=== PATIENT | male | born 1930 | race Caucasian/White ===

== ENCOUNTER 2017-06-13 14:17 | Emergency (ER) | payer MEDICARE, OTHER ==
--- NOTE | 2017-06-13 14:39 | Emergency Department Record ---
History of Present Illness - General Chief complaint: Flu Like Symptoms Stated complaint: FEVER,COUGH Time Seen by Provider: 06/13/17 14:21 Source: Patient, RN notes reviewed Mode of Arrival: Ambulatory - History of Present Illness Initial comments: fever and coughing and some sputum PMH Hypertension, ex smoker quite 1985. Patient has numbness in the left thumb and 2nd and 3rd digit on the volar pads no weakness in fingers. cough for 3-4 days and last night wake up at 4 am with a fever and he took tylenol and numbness in threefingers because of that brought to the ED. Patient denies chest pain and further question after his EKG he said maybe some heaviness in the chest not really Onset/Timin -: Days(s) Location: Generalized Consistency: Other Improves with: None Worsens with: None Context: Other Associated Symptoms: Fever/chills - Related Data Allergies Allergy/AdvReac Type Severity Reaction Status Date / Time No Known Allergies Allergy Unverified 01/29/17 15:20 Travel Screening - Travel/Exposure Within Last 30 Days Have you traveled within the last 30 days?: No Review of Systems Reviewed: No additional complaints except as noted below Constitutional: Reports: As per HPI, Fever. Denies: Chills, Malaise, Night sweats, Weakness, Weight change Eyes: Reports: As per HPI. Denies: Eye discharge, Eye pain, Photophobia, Vision change ENT: Reports: As per HPI, Congestion. Denies: Dental pain, Ear pain, Epistaxis , Hearing loss, Throat pain Respiratory: Reports: As per HPI, Cough, Wheezes. Denies: Dyspnea, Hemoptysis, Stridor Cardiovascular: Reports: As per HPI. Denies: Arrhythmia, Chest pain, Dyspnea on exertion, Edema, Murmurs, Orthopnea, Palpitations, Paroxysmal nocturnal dyspnea, Rheumatic Fever, Syncope Endocrine: Reports: As per HPI. Denies: Fatigue, Heat or cold intolerance, Polydipsia, Polyuria Gastrointestinal: Reports: As per HPI. Denies: Abdominal pain, Constipation, Diarrhea, Hematemesis, Hematochezia, Melena, Nausea, Vomiting Genitourinary: Reports: As per HPI. Denies: Dysuria, Frequency, Hematuria, Incontinence, Retention, Testicular pain, Testicular mass, Urgency Musculoskeletal: Reports: As per HPI. Denies: Arthralgia, Back pain, Gout, Joint swelling, Myalgia, Neck pain Skin: Reports: As per HPI. Denies: Bruising, Change in color, Change in hair/ nails, Lesions, Pruritus, Rash Neurological: Reports: As per HPI. Denies: Abnormal gait, Confusion, Headache, Numbness, Paresthesias, Seizure, Tingling, Tremors, Vertigo, Weakness Psychiatric: Reports: As per HPI. Denies: Anxiety, Auditory hallucinations, Depression, Homicidal thoughts, Suicidal thoughts, Visual hallucinations Hematological/Lymphatic: Reports: As per HPI. Denies: Anemia, Blood Clots, Easy bleeding, Easy bruising, Swollen glands Past Medical History - SOCIAL HISTORY Smoking Status: Former smoker Alcohol Use: None Drug Use: None - RESPIRATORY Hx Respiratory Disorders: No - CARDIOVASCULAR Hx Cardio Disorders: Yes Hx Hypertension: Yes Comment:: high cholesterol - NEURO Hx Neuro Disorders: No Comment:: restless legs - GI Hx GI Disorders: No - Hx Genitourinary Disorders: Yes Hx Prostate Problems: Yes - ENDOCRINE Hx Endocrine Disorders: No - MUSCULOSKELETAL Hx Musculoskeletal Disorders: No - PSYCH Hx Psych Problems: No - HEMATOLOGY/ONCOLOGY Hx Hematology/Oncology Disorders: No Family Medical History Any Significant Family History?: No Physical Exam - General General Appearance: Alert, Oriented x3, Cooperative, Mild distress - Head Head exam: Normal inspection - Eye Eye exam: Normal appearance, PERRL Pupils: Normal accommodation - ENT ENT exam: Normal exam, Mucous membranes moist, Normal external ear exam, Normal orophraynx, TM's normal bilaterally Ear exam: Normal external inspection. negative: External canal tenderness Nasal Exam: Normal inspection. negative: Discharge, Sinus tenderness Mouth exam: Normal external inspection, Tongue normal Teeth exam: Normal inspection. negative: Dental caries Throat exam: Normal inspection. negative: Tonsillar erythema, Tonsillar exudate - Neck Neck exam: Normal inspection, Full ROM. negative: Tenderness - Respiratory Respiratory exam: Normal lung sounds bilaterally. negative: Respiratory distress - Cardiovascular Cardiovascular Exam: Regular rate, Normal rhythm, Normal heart sounds - GI/Abdominal GI/Abdominal exam: Soft, Normal bowel sounds. negative: Tenderness - Rectal Rectal exam: Deferred - exam: Deferred - Extremities Extremities exam: Normal inspection, Full ROM, Normal capillary refill. negative: Tenderness - Back Back exam: Reports: Normal inspection, Full ROM. Denies: Muscle spasm, Rash noted, Tenderness - Neurological Neurological exam: Alert, Normal gait, Oriented X3, Reflexes normal - Psychiatric Psychiatric exam: Normal affect, Normal mood - Skin Skin exam: Dry, Intact, Normal color, Warm Course Vital Signs 06/13/17 14:21 Temperature 98.6 F Pulse Rate 94 H Respiratory 18 Rate Blood Pressure 153/79 Pulse Ox 98 - Reevaluation(s) Reevaluation #1: discussed case with Dr. Fried and he said not stemi but needs a workup and wait for labs and he with Check with DR. Lau's previous EKGs and will call back. 06/13/17 16:17 Reevaluation #2: patient and refuse to go to [facility] and insisted in going to [facility] and they told me Dr Linder knows about there concerns of [facility]. 06/13/17 17:28 Reevaluation #3: Discussed case Dr. Toussaint and he accepted the admission and will transfer to [facility] 06/13/17 18:09 Medical Decision Making - Data Complexity MDM Data: Labs Ordered and/or Reviewed (flu b positive), X-Ray Ordered and/or Reviewed (chest xray cardiomegaly and right lower lobe infiltrate ), EKG Ordered and/or Reviewed (ST elevation of V1,V2,V3 V4, Discussed with Beatrice and he said LVH and not acute stemi) - Lab Data Result diagrams: 06/13/17 14:41 06/13/17 14:41 Disposition Clinical Impression: Influenza, Abnormal EKG, Troponin level elevated Pneumonia Qualifiers: Pneumonia type: due to unspecified organism Laterality: right Lung location: lower lobe of lung Qualified Code(s): J18.1 - Lobar pneumonia, unspecified organism Disposition: Acute Care Hospital Transfer Condition: (2) Stable Forms: Patient Portal Access Time of Disposition: 18:10 Quality - Quality Measures Quality Measures: N/A - Blood Pressure Screening Does Patient Have Any of the Following: No Blood Pressure Classification: Hypertensive Reading Systolic Measurement: 153 Diastolic Measurement: 79 Screening for High Blood Pressure: < Pre-Hypertensive BP, F/U Documented > [ G8950] Pre-Hypertensive Follow-up Interventions: Referral to alternative/primary care provider.
[2017-06-13] MEDS ORDERED: IPRATROPIUM/ALBUTEROL (0.5MG/3MG) NEB INH ONE (14:41)
[2017-06-13 14:45] LABS: INFLUENZA A NEGATIVE (NEGATIVE); INFLUENZA B POSITIVE (NEGATIVE)
[2017-06-13 15:05] LABS: HEMATOCRIT 45.2 % (42.0-52.0); MEAN CELL VOLUME 92.6 fl (81-97); MEAN CORPUSCULAR HEMOGLOBIN 30.7 pg (27-33); MEAN CORPUSCULAR HGB CONC 33.2 g/dl (32-36); MEAN PLATELET VOLUME 9.5 fl (7.4-10.4); PLATELET COUNT 198 K/uL (130-400); RED BLOOD COUNT 4.88 M/uL (4.40-5.70); RED CELL DISTRIBUTION WIDTH 13.8 % (11.5-14.5); WHITE BLOOD COUNT W/O DIFF 4.4 K/uL (4.2-12.2)
[2017-06-13] MEDS ORDERED: ALBUTEROL HFA 8 GM INHALER INH ONE (15:18)
[2017-06-13 15:24] LABS: BLOOD UREA NITROGEN 16 mg/dL (8-23); CREATININE 1.1 mg/dL (0.7-1.2); EST GLOMERULAR FILTRATION RATE > 60 mL/min; GLUCOSE,RANDOM 91 mg/dL (74-109)
[2017-06-13] MEDS ORDERED: ASPIRIN 81 MG CHEWABLE TABLET PO ONE (15:50)
[2017-06-13] MEDS ORDERED: OSTELTAMIVIR 75 MG CAP PO ONE (15:57)
[2017-06-13] MEDS ORDERED: HEPARIN SODIUM 1000 UNIT/1 ML 10ML VIAL IVP ONE (16:07)
[2017-06-13] MEDS ORDERED: HEPARIN SODIUM/D5W 25,000 UNITS/500 ML BAG IV SCH (16:15)
[2017-06-13 16:17] LABS: PARTIAL THROMBOPLASTIN TIME 30.9 SECONDS (24.5-39.1); PROTHROMBIN TIME (PATIENT) 11.1 SECONDS (9.5-12.1)
[2017-06-13 16:31] LABS: CKMB 4.3 ng/mL (<6.73)
[2017-06-13] MEDS ORDERED: CEFTRIAXONE SODIUM 1 GM in 0.9 % SODIUM CHLORIDE 100ML 100 ML IVPB ONE (17:35)
[2017-06-13] MEDS ORDERED: ACETAMINOPHEN 500 MG TABLET PO ONE (18:19)
--- NOTE | 2017-06-14 08:38 | RADIOLOGY REPORT ---
EXAM: CHEST, TWO VIEWS HISTORY: CHEST PAIN. TECHNIQUE: Frontal and lateral views of the chest were obtained. Comparison: Prior chest 01/29/17. FINDINGS: The heart size is stable. Mild elevation of the right hemidiaphragm. Atheromatous change of the thoracic aorta. Osteopenia. No pneumothorax. Patchy air space opacity in the right lung base suspicious for pneumonitis. Probable mild interstitial edema as well. No pneumothorax. IMPRESSION: THE HEART IS ENLARGED, BUT STABLE. PROBABLE MILD INTERSTITIAL EDEMA. PATCHY AIR SPACE OPACITY RIGHT LUNG BASE SUSPICIOUS FOR PNEUMONITIS. [facility]BER: [id number] [facility]
--- NOTE | 2017-06-14 08:45 | CT SCAN REPORT ---
EXAM: CT OF THE BRAIN HISTORY: NUMBNESS. TECHNIQUE: CT of the brain without contrast was obtained. Comparison: None. FINDINGS: The left globe is intact. Post surgical changes of the right globe. Mucosal thickening with air fluid level of the right maxillary sinus. No displaced or depressed skull fracture. No intra or extraaxial hemorrhage. CT is limited for evaluation of acute infarct. No CT evidence for large or territorial acute infarct. No mass or midline shift. IMPRESSION: RIGHT MAXILLARY SINUSITIS. ATROPHY. SMALL VESSEL ISCHEMIC CHANGE. [facility]: [id number] [facility]
== END 2017-06-13 19:42 | disposition short-term general hospital (02) ==
LOC: ER 14:17
DX: J10.08 Influenza due to other identified influenza virus with other specified pneumonia (principal); R79.89 Other specified abnormal findings of blood chemistry; R94.31 Abnormal electrocardiogram [ECG] [EKG]; R07.89 Other chest pain; R20.0 Anesthesia of skin; I10 Essential (primary) hypertension; Z87.891 Personal history of nicotine dependence
CPT/HCPCS: 70450; 71046; 80048; 82553; 84484; 85027; 85610; 85651; 85730; 87400; 93005; 93010; 94640; 96365; 99285

== ENCOUNTER 2017-10-31 14:45 | Emergency (ER) | payer MEDICARE, OTHER ==
--- NOTE | 2017-10-31 15:41 | Emergency Department Record ---
History of Present Illness - General Chief Complaint: Fall Injury Stated Complaint: FALL INJURY Time Seen by Provider: 10/31/17 15:34 Source: Patient Mode of Arrival: Ambulatory Limitations: No limitations - History of Present Illness Initial Comments: The patient is here due to a fall an hour prior to presenting to the ER. The patient was trying to get into bed and rolled out and his his L head on the window sill. He also injured his L 5th finger and R thumb and L elbow (with only a skin tear). There was no LOC and the patient denies any significant DENG and has no neck pain. He did ambulate here with no pain to his back, legs, or chest. His main complaint is L 5th finger pain. The patient is on Eliquis also and his Td is UTD. MD Complaint: Fall Onset/Timin -: Minutes(s) - Crosby Coma Scale Eye Response: (4) Open spontaneously Motor Response: (6) Obeys commands Verbal Response: (5) Oriented Crosby Total: 15 - Related Data Home Medications Medication Instructions Recorded Confirmed Last Taken Apixaban [Eliquis] 5 mg PO DAILY 10/31/17 10/31/17 10/31/17 Allergies Allergy/AdvReac Type Severity Reaction Status Date / Time No Known Allergies Allergy PT UNSURE Unverified 10/31/17 15:20 OF REACTION Travel Screening - Travel/Exposure Within Last 30 Days Have you traveled within the last 30 days?: No - Travel/Exposure Within Last Year Have you traveled outside the [place] in the last year?: No - Additonal Travel Details Have you been exposed to anyone with a communicable illness?: No - Travel Symptoms Symptom Screening: None Review of Systems Constitutional: Denies: Chills, Fever Eyes: Denies: Eye discharge ENT: Denies: Congestion Respiratory: Denies: Cough, Dyspnea Cardiovascular: Denies: Arrhythmia Endocrine: Denies: Fatigue Gastrointestinal: Denies: Abdominal pain Genitourinary: Denies: Dysuria Musculoskeletal: Denies: Arthralgia Past Medical History - SOCIAL HISTORY Smoking Status: Former smoker Alcohol Use: None Drug Use: None - RESPIRATORY Hx Respiratory Disorders: No - CARDIOVASCULAR Hx Cardio Disorders: Yes Hx Hypertension: Yes Comment:: high cholesterol - NEURO Hx Neuro Disorders: No Comment:: restless legs - GI Hx GI Disorders: No - Hx Genitourinary Disorders: Yes Hx Prostate Problems: Yes - ENDOCRINE Hx Endocrine Disorders: No - MUSCULOSKELETAL Hx Musculoskeletal Disorders: No - PSYCH Hx Psych Problems: No - HEMATOLOGY/ONCOLOGY Hx Hematology/Oncology Disorders: No Family Medical History Any Significant Family History?: No Physical Exam - General General Appearance: Alert, Oriented x3, Cooperative, No acute distress - Head Head exam: Atraumatic, Normocephalic, Normal inspection (There is mild tenderness to the L lateral supraorbital area but there are no signs of any trauma.) - Eye Eye exam: Normal appearance, PERRL (L only. 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 negative: Periorbital swelling, Periorbital tenderness - ENT Throat exam: Normal inspection. negative: Tonsillar erythema, Tonsillar exudate - Neck Neck exam: Normal inspection, Full ROM. negative: Tenderness (There is no Cspine tenderness.) - Respiratory Respiratory exam: Normal lung sounds bilaterally. negative: Respiratory distress - Cardiovascular Cardiovascular Exam: Regular rate, Normal rhythm, Normal heart sounds - GI/Abdominal GI/Abdominal exam: Soft, Normal bowel sounds. negative: Tenderness - Extremities Extremities exam: Normal capillary refill, Tenderness (There is significant L 5th finger tenderness with mild lateral deformity. The R 1st MC is mildy tender over the R palm. The R thumb has normal ROM.), Other (There are 2 skin tears to the L elbow but no significant tenderness. The L elbow ROM is normal.). negative: Normal inspection, Full ROM, Joint swelling - Neurological Neurological exam: Alert, Normal gait, Oriented X3. negative: Abnormal gait, Motor sensory deficit Course Vital Signs 10/31/17 15:14 Temperature 97.7 F Pulse Rate 50 L Respiratory 16 Rate Blood Pressure 148/60 Pulse Ox 95 - Reevaluation(s) Reevaluation #1: The patient's care will be turned over to Dr. Zambrano at 16:15 due to shift change. 10/31/17 16:14 Medical Decision Making - Lab Data Result diagrams: 10/31/17 15:58 10/31/17 15:58 Disposition Forms: Patient Portal Access Quality - Quality Measures Quality Measures: N/A - Blood Pressure Screening View Details: Yes Does Patient Have Any of the Following: No Blood Pressure Classification: Hypertensive Reading Systolic Measurement: 148 Diastolic Measurement: 60 Screening for High Blood Pressure: < First Hypertensive BP, F/U Documented > [ G8950] First Hypertensive Follow-up Interventions: Referral to alternative/primary care provider.
[2017-10-31 16:05] LABS: BASO % 0.3 % (0-6); EOS % 0.9 % (0-6); GRAN % 79.6 % (47-80); HEMATOCRIT 41.1 % (42.0-52.0); HEMOGLOBIN 12.9 gm/dl (14.0-18.0); LYMPH % 9.9 % (16-45); MEAN CELL VOLUME 89.2 fl (81-97); MEAN CORPUSCULAR HEMOGLOBIN 27.9 pg (27-33); MEAN CORPUSCULAR HGB CONC 31.4 g/dl (32-36); MEAN PLATELET VOLUME 10.2 fl (7.4-10.4); MONO % 9.3 % (0-9); PLATELET COUNT 206 K/uL (130-400); RED BLOOD COUNT 4.61 M/uL (4.40-5.70); RED CELL DISTRIBUTION WIDTH 14.6 % (11.5-14.5); WHITE BLOOD COUNT W/O DIFF 6.9 K/uL (4.2-12.2)
[2017-10-31 16:16] LABS: INR 1.1; PARTIAL THROMBOPLASTIN TIME 25.2 SECONDS (24.5-39.1); PROTHROMBIN TIME (PATIENT) 11.6 SECONDS (9.5-12.1)
[2017-10-31 16:18] LABS: BLOOD UREA NITROGEN 16 mg/dL (8-23); EST GLOMERULAR FILTRATION RATE > 60 mL/min
[2017-10-31 16:21] LABS: GLUCOSE,RANDOM 157 mg/dL (74-109)
[2017-10-31] MEDS ORDERED: ACETAMINOPHEN 500 MG TABLET PO ONE (17:53)
--- NOTE | 2017-10-31 21:29 | Emergency Department Record ---
History of Present Illness - General Chief Complaint: Fall Injury Stated Complaint: FALL INJURY Time Seen by Provider: 10/31/17 15:34 Source: Patient Mode of Arrival: Ambulatory - History of Present Illness Onset/Timin -: Minutes(s) - [place]ill Coma Scale Eye Response: (4) Open spontaneously Motor Response: (6) Obeys commands Verbal Response: (5) Oriented [place] Total: 15 - Related Data Home Medications Medication Instructions Recorded Confirmed Last Taken Apixaban [Eliquis] 5 mg PO DAILY 10/31/17 10/31/17 10/31/17 Allergies Allergy/AdvReac Type Severity Reaction Status Date / Time No Known Allergies Allergy PT UNSURE Unverified 10/31/17 15:20 OF REACTION Travel Screening - Travel/Exposure Within Last 30 Days Have you traveled within the last 30 days?: No - Travel/Exposure Within Last Year Have you traveled outside the [place] in the last year?: No - Additonal Travel Details Have you been exposed to anyone with a communicable illness?: No - Travel Symptoms Symptom Screening: None Review of Systems Constitutional: Denies: Chills, Fever Eyes: Denies: Eye discharge ENT: Denies: Congestion Respiratory: Denies: Cough, Dyspnea Cardiovascular: Denies: Arrhythmia Endocrine: Denies: Fatigue Gastrointestinal: Denies: Abdominal pain Genitourinary: Denies: Dysuria Musculoskeletal: Denies: Arthralgia Past Medical History - SOCIAL HISTORY Smoking Status: Former smoker Alcohol Use: None Drug Use: None - RESPIRATORY Hx Respiratory Disorders: No - CARDIOVASCULAR Hx Cardio Disorders: Yes Hx Hypertension: Yes Comment:: high cholesterol - NEURO Hx Neuro Disorders: No Comment:: restless legs - GI Hx GI Disorders: No - Hx Genitourinary Disorders: Yes Hx Prostate Problems: Yes - ENDOCRINE Hx Endocrine Disorders: No - MUSCULOSKELETAL Hx Musculoskeletal Disorders: No - PSYCH Hx Psych Problems: No - HEMATOLOGY/ONCOLOGY Hx Hematology/Oncology Disorders: No Family Medical History Any Significant Family History?: No Physical Exam - General Limitations: No limitations Course Vital Signs 10/31/17 10/31/17 10/31/17 15:14 16:30 17:51 Temperature 97.7 F Pulse Rate 50 L Pulse Rate [ 56 L 60 Pulse Ox Probe] Respiratory 16 16 16 Rate Blood Pressure 148/60 Blood Pressure 144/68 138/70 [Right Arm] Pulse Ox 95 96 96 10/31/17 19:14 Temperature Pulse Rate Pulse Rate [ 64 Pulse Ox Probe] Respiratory 16 Rate Blood Pressure Blood Pressure 135/69 [Right Arm] Pulse Ox 96 - Reevaluation(s) Reevaluation #1: 10/31/17 21:27 d/w dr jimenes Procedures - Orthopedic Joint Reduction Joint #2 Consent Obtained: Written consent Time Out Performed: Yes Side: Left Joint Reduction Location: Finger Analgesia: Digital block Local Anesthetic Used: Lidocaine 1%, Bupivicaine 0.25% Amount of Anesthetic Used (mls): 2 Shoulder Technique Used (if applicable): Traction/counter-traction Technique Used: Direct manipulation, Traction/counter-traction Post-Reduction Neuro Exam: Intact Post-Reduction Vascular Exam: No change Post Reduction X-Ray Obtained: Yes Post Reduction X-Ray Results: Other (reduced a 2nd and 3rd time. final time is reduced, small fx fragments present) Patient Tolerated Procedure: Good Medical Decision Making - Lab Data Result diagrams: 10/31/17 15:58 10/31/17 15:58 Lab Results 10/31/17 10/31/17 10/31/17 Range/Units 15:58 15:58 15:58 WBC 6.9 (4.2-12.2) K/uL RBC 4.61 (4.40-5.70) M/uL Hgb 12.9 L (14.0-18.0) gm/dl Hct 41.1 L (42.0-52.0) % MCV 89.2 (81-97) fl MCH 27.9 (27-33) pg MCHC 31.4 L (32-36) g/dl RDW 14.6 H (11.5-14.5) % Plt Count 206 (130-400) K/uL MPV 10.2 (7.4-10.4) fl Gran % 79.6 (47-80) % Lymphocytes % 9.9 L (16-45) % Monocytes % 9.3 H (0-9) % Eosinophils % 0.9 (0-6) % Basophils % 0.3 (0-6) % PT 11.6 (9.5-12.1) SECONDS INR 1.1 APTT 25.2 (24.5-39.1) SECONDS Sodium 142 (136-145) mmol/L Potassium 3.9 (3.4-4.5) mmol/L Chloride 106 (98-107) mmol/L Carbon Dioxide 23.0 (22-29) mmol/L Anion Gap 13.0 (7-16) BUN 16 (8-23) mg/dL Creatinine 1.0 (0.7-1.2) mg/dL Estimated GFR > 60 mL/min Random Glucose 157 H (74-109) mg/dL Calcium 8.7 L (8.8-10.2) mg/dL Disposition Disposition: Discharge Clinical Impression: Finger dislocation Qualifiers: Encounter type: initial encounter Qualified Code(s): S63.259A - Unspecified dislocation of unspecified finger, initial encounter Finger fracture, left Qualifiers: Encounter type: initial encounter Finger: little finger Fracture type: closed Phalanx: middle Fracture alignment: displaced Qualified Code(s): S62.627A - Displaced fracture of medial phalanx of left little finger, initial encounter for closed fracture Disposition: Home, Self-Care Condition: (1) Good Instructions: Finger Dislocation (ED), Finger Fracture (ED) Additional Instructions: follow up with dr jimenes. return sooner if worse. ice and elevate Referrals: KEATON JIMENES [DOCTOR OF OSTEOPATH] - [facility] Special[facility] [Provider Group] Forms: Patient Portal Access Quality - Quality Measures Quality Measures: N/A - Blood Pressure Screening Does Patient Have Any of the Following: Active Dx of HTN Blood Pressure Classification: Hypertensive Reading Systolic Measurement: 148 Diastolic Measurement: 60 Screening for High Blood Pressure: Patient Exclusion, Hx of HTN [G9744]
[2017-10-31] MEDS ORDERED: HYDROCODONE/APAP 5/325MG TABLET PO ONE (21:30)
--- NOTE | 2017-11-01 08:06 | RADIOLOGY REPORT ---
EXAM: LEFT HAND, THREE VIEWS HISTORY: PAIN IN FIFTH DIGIT POST FALL. TECHNIQUE: Three views of the left hand were obtained. Comparison: Same day radiographic examination of the right hand. Encounter: Initial. FINDINGS: There is normal bone mineralization. There is dislocation of the fifth PIP joint with the base of the fifth middle phalanx positioned posterior and medial to the head of the proximal phalanx. On the AP view there is a tiny calcific density projecting just proximal to the base of the fifth middle phalanx measuring 1.6 mm. The etiology of this is uncertain. A small fracture fragment cannot be excluded. No other dislocation is seen nor is there other osseous evidence of fracture. 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 No periarticular erosion. IMPRESSION: 1. DISLOCATION OF THE FIFTH PIP JOINT, DETAILED ABOVE. TINY CALCIFIC DENSITY DEMONSTRATED ON THE AP VIEW PROJECTING PROXIMAL TO THE FIFTH MIDDLE PHALANX BASE MAY REPRESENT A SMALL FRACTURE FRAGMENT. 2. NO OTHER EVIDENCE OF FRACTURE NOR DISLOCATION. 3. MILD DEGENERATIVE CHANGES. JOB NUMBER: [id number] [facility]
--- NOTE | 2017-11-01 08:17 | RADIOLOGY REPORT ---
EXAM: RIGHT HAND, THREE VIEWS HISTORY: PAIN IN MID TO PROXIMAL THUMB POST FALL. TECHNIQUE: Three views of the right hand were obtained as well as an additional AP view of the right thumb. Comparison: Same day radiographic examination of the left hand. Encounter: Initial. FINDINGS: There is normal bone mineralization. No fracture, dislocation, or destructive bone lesion is seen. 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 No definite periarticular erosion. IMPRESSION: NO ACUTE FRACTURE NOR DISLOCATION. MILD DEGENERATIVE CHANGES SCATTERED THROUGHOUT THE RIGHT HAND AND WRIST. JOB NUMBER: [id number] [facility]
--- NOTE | 2017-11-01 08:26 | CT SCAN REPORT ---
EXAM: CT OF THE HEAD WITHOUT CONTRAST HISTORY: LEFT SIDED HEAD TRAUMA FROM FALL. ANTICOAGULATION THERAPY. TECHNIQUE: Routine noncontrast CT examination of the head was obtained. Comparison: CT of the head without contrast dated 06/13/17. FINDINGS: Moderate dilatation of the subarachnoid spaces is redemonstrated. The ventricles are not enlarged. Mild periventricular and subcortical white matter lucencies are again noted scattered in each cerebral hemisphere, primarily involving the frontal lobe. These are nonspecific, but likely areas of chronic small vessel ischemia. Prominent perivascular spaces versus old lacunar infarcts are again noted within the anterior aspects of each external capsule, stable. No new area of abnormally increased or decreased attenuation is noted throughout the brain substance. No skull fracture is visualized. Post surgical changes redemonstrated within the right ocular globe with increased density centrally, stable. Post cataract surgery changes on the left. The visualized paranasal sinuses and mastoid air cells are clear with the exception of minimal mucosal thickening within the maxillary sinuses. IMPRESSION: 1. NO CT EVIDENCE OF ACUTE MAJOR VESSEL INFARCT, INTRACRANIAL HEMORRHAGE, NOR MASS. 2. MODERATE GENERALIZED ATROPHY. 3. MINOR WHITE MATTER LUCENCIES REDEMONSTRATED IN EACH CEREBRAL HEMISPHERE CONSISTENT WITH CHRONIC SMALL VESSEL ISCHEMIA. PROMINENT PERIVASCULAR SPACES VERSUS OLD LACUNAR INFARCTS AGAIN NOTED WITHIN EACH EXTERNAL CAPSULE. 4. MINIMAL MUCOSAL THICKENING WITHIN THE MAXILLARY SINUSES. 5. POST SURGICAL CHANGES OF THE RIGHT OCULAR GLOBE REDEMONSTRATED. [facility]OB [facility]BER: [id number] [facility]
--- NOTE | 2017-11-01 08:55 | RADIOLOGY REPORT ---
EXAM: LEFT FIFTH DIGIT, THREE VIEWS HISTORY: POST REDUCTION. TECHNIQUE: Three views of the fourth and fifth digits of the left hand are obtained. Comparison: Same day radiographic examination of the left hand. FINDINGS: There is suggestion of "yajaira" taping of the fourth and fifth digits. There is redemonstration of a dislocation of the fifth PIP joint with the base of the fifth middle phalanx posteriorly and slightly medially positioned. A small ossific density is again noted projecting proximal to the base of the fifth middle phalanx with a small fracture fragment again not excluded. No other evidence of fracture nor dislocation. Soft tissue swelling at the dislocation site. IMPRESSION: PERSISTENT DISLOCATION OF THE FIFTH PIP JOINT, DESCRIBED ABOVE. SMALL CALCIFIC DENSITY AGAIN NOTED PROJECTING PROXIMAL TO THE BASE OF THE FIFTH MIDDLE PHALANX RAISING THE POSSIBILITY OF SMALL FRACTURE FRAGMENT/FRAGMENTS. ASSOCIATED SOFT TISSUE SWELLING. JOB NUMBER: [id number] [facility]
--- NOTE | 2017-11-01 08:59 | RADIOLOGY REPORT ---
EXAM: LEFT FIFTH DIGIT, THREE VIEWS HISTORY: POST REDUCTION. TECHNIQUE: Three views of the fifth digit of the left hand were obtained. Comparison: Same day radiographic examination obtained at 18:15. FINDINGS: The fourth and fifth digits no longer appear taped together. There has been partial reduction of the previously demonstrated dislocation of the fifth PIP joint though there is persistent posterior and medial subluxation of the fifth middle phalanx base relative to the head of the fifth proximal phalanx. Tiny calcific densities project near the medial margin of the head of the fifth proximal phalanx. Tiny fracture fragments cannot be excluded. Soft tissue swelling persists. IMPRESSION: THERE HAS BEEN INTERVAL MILD REDUCTION OF THE FIFTH PIP JOINT DISLOCATION, DISCUSSED ABOVE. TINY CALCIFIC DENSITIES ADJACENT TO THE MEDIAL MARGIN OF THE HEAD OF THE FIFTH PROXIMAL PHALANX. THESE ARE NONSPECIFIC WITH TINY FRACTURE FRAGMENTS NOT EXCLUDED. JOB NUMBER: [id number] [facility]D
--- NOTE | 2017-11-01 09:05 | RADIOLOGY REPORT ---
EXAM: LEFT FIFTH DIGIT, TWO VIEWS HISTORY: POST REDUCTION. TECHNIQUE: AP and lateral views of the fifth digit of the left hand were obtained. Comparison: Three views of the fifth digit of the left hand obtained at 19:22. FINDINGS: There is normal bone mineralization. There has been interval reduction of the previously demonstrated fifth PIP joint subluxation/ dislocation. There is deformity of the anterior margin of the base of the fifth middle phalanx. Adjacent to this defect are a couple small ossific densities, the largest of which measures approximately 1.4 mm. These are consistent with small fracture fragments. Additionally, there are possible tiny fracture fragments near the dorsal margin of the joint capsule. No other fracture is seen nor is there dislocation. The articular relations are otherwise maintained. Soft tissue swelling centered at the PIP joint redemonstrated. IMPRESSION: INTERVAL REDUCTION OF THE PREVIOUSLY DEMONSTRATED PIP JOINT SUBLUXATION/ DISLOCATION. EVIDENCE OF INTRAARTICULAR FRACTURE OF THE ANTERIOR MARGIN OF THE FIFTH MIDDLE PHALANX BASE WITH TINY FRACTURE FRAGMENTS PROJECTING NEAR THE ANTERIOR ASPECT OF THE JOINT LINE AND POSSIBLE TINY FRACTURE FRAGMENTS NEAR THE DORSAL JOINT LINE. JOB NUMBER: [id number] [facility]
== END 2017-10-31 21:56 | disposition home or self-care (01) ==
LOC: ER 14:45
DX: S62.627A Displaced fracture of middle phalanx of left little finger, initial encounter for closed fracture (principal); M79.644 Pain in right finger(s); M79.641 Pain in right hand; R51 Headache; I10 Essential (primary) hypertension; Z87.891 Personal history of nicotine dependence; Z79.01 Long term (current) use of anticoagulants
CPT/HCPCS: 70450; 73140; 80048; 85025; 85610; 85730; 99283; 99284